=== PATIENT | female | born 1965 | race Caucasian/White ===

== ENCOUNTER → 2022-01-03 13:23 | Outpatient (CLI) | payer MEDICARE, SELFPAY ==
--- NOTE | ~2022-01-03 | XR_ITS ---
XR hip RT 2V w AP pelvis DATE: 01/03/2022 13:52 INDICATION: Right hip pain TECHNIQUE: AP pelvis. AP and lateral views of right hip COMPARISON: None FINDINGS: The pubic symphysis and sacroiliac joints are intact. Hip joint spaces are symmetric and re latively well preserved. No fracture or dislocation, avascular necrosis or bone destruction of the right hip is detected. IMPRESSION: No significant abnormality of the right hip Reviewed, dictated and finalized at location A. 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
--- NOTE | ~2022-01-03 | XR_ITS ---
XR lumbar spine 2-3V DATE: 01/03/2022 13:52 INDICATION: Low back pain, right hip pain TECHNIQUE: AP, lateral, coned lateral lumbosacral views COMPARISON: None FINDINGS: Status post cholecystectomy. There is degenerative change at the apophyseal joints in the lower lumbar and lumbosacral area with a ssociated grade 1 anterolisthesis at L4-5. There is moderate degenerative disc disease at L2-3 and mild degenerative disc disease at L3-4 and L4 -5. No fracture or bone destruction. The included lower thoracic and lumbar pedicles are intact. The sacroiliac joints are normal. There is a prominent amount of fecal material in the colon. Status post cholecystectomy. 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
== END ==
PROVIDERS: PCP Family Medicine
DX: M25.551 Pain in right hip (principal); M47.816 Spondylosis without myelopathy or radiculopathy, lumbar region; Z90.49 Acquired absence of other specified parts of digestive tract
CPT/HCPCS: 72100; 73502

== ENCOUNTER → 2022-01-31 18:03 | Outpatient (CLI) | payer MEDICARE, SELFPAY ==
--- NOTE | ~2022-01-31 | MR_ITS ---
EXAMINATION: MR lumbar spine wo con DATE: 01/31/2022 18:54 INDICATION: Lumbar radiculopathy TECHNIQUE: Magnetic resonance imaging (MRI) of the lumbar spine was performed without intravenous con trast. Sequences included sagittal T2-weighted FSE, sagittal T2-weighted FS FSE, sagittal T1-weighted FSE, and axial T2-weighted FSE. COMPARISON: Lumbar spine radiographs dated 01/03/2022 FINDINGS: 1-2 mm retrolisthesis L3 on L4, 4 mm anterolisthesis L4 on L5 and 3 mm retrolisthesis L5 on S1. Verte bral body heights are normal. Normal marrow signal. Mild to moderate disc height loss at L2-L3 and L 4-L5 and mild disc height loss at L3-L4 and L5-S1. The conus medullaris terminates at L1. There is no rmal signal in the caudal spinal cord. Paravertebral soft tissues are unremarkable. The following dis c levels are specifically discussed: T12-L1: The disc does not extend beyond the endplate margin. There is mild bilateral facet joint oste oarthritis. There is no neural foraminal stenosis. There is no central canal stenosis. L1-L2: Disc is minimally bulging. There is mild bilateral facet joint osteoarthritis. There is mild b ilateral neural foraminal stenosis. There is no central canal stenosis. L2-L3: Diffuse disc bulge with annular fissure. There is mild left and moderate right facet joint ost eoarthritis. There is mild to moderate bilateral neural foraminal stenosis. There is mild central can al stenosis. L3-L4: Diffuse disc bulge with annular fissure. There is hypertrophy of the ligamentum flavum. There is moderate bilateral facet joint osteoarthritis. There is moderate bilateral neural foraminal stenos is. There is mild central canal stenosis. L4-L5: Disc is bulging with annular fissure and broad-based disc extrusion extending from foraminal z one to foraminal zone with disc material extending up to 3 mm cephalad to the level of the inferior e ndplate of L4. There is hypertrophy of the ligamentum flavum. There is severe bilateral facet joint osteoarthritis. There is moderate to severe bilateral neural foraminal stenosis. There is severe cent ral canal stenosis. L5-S1: Disc is bulging with annular fissure and disc extrusion extending from the central to the righ t foraminal zone with disc material extending couple millimeters cephalad and caudal to the level of the endplates. There is moderate bilateral facet joint osteoarthritis. There is moderate to severe le ft and severe right neural foraminal stenosis. There is mild central canal stenosis. IMPRESSION: 1. Moderate lumbar spondylosis with severe central canal stenosis at L4-L5 and bilateral moderate to severe neural foraminal stenosis at L4-L5 and L5-S1. 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
== END ==
PROVIDERS: Visit Provider Family Medicine
DX: M47.27 Other spondylosis with radiculopathy, lumbosacral region (principal); M48.07 Spinal stenosis, lumbosacral region; M47.25 Other spondylosis with radiculopathy, thoracolumbar region; M48.05 Spinal stenosis, thoracolumbar region
CPT/HCPCS: 72148

== ENCOUNTER 2022-07-12 09:57 | Outpatient (CLI) | payer MEDICARE, SELFPAY ==
--- NOTE | ~2022-07-12 | MM_ITS ---
EXAMINATION: MM screening estephanie BI w vika HISTORY: Screening mammogram TECHNIQUE: Craniocaudal and mediolateral oblique 3-D tomosynthesis images were obtained and synthetic 2-D images were generated. CAD analysis was submitted and interpreted. COMPARISON: 12/02/2017 bilateral screening mammogram BREAST PARENCHYMAL COMPOSITION: There are scattered areas of fibroglandular density. FINDINGS: Occasional benign calcifications. There is no evidence of suspicious mass, calcification, or architectural distortion to suggest malig radha in either breast. There has been no suspicious interval change. IMPRESSION: 1. No mammographic evidence of malignancy. 2. Recommend routine screening mammography in one year. BI-RADS Category 2: Benign finding(s). 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
== END 2022-07-12 09:58 | disposition home or self-care (01) ==
PROVIDERS: Visit Provider Family Medicine
DX: Z12.31 Encounter for screening mammogram for malignant neoplasm of breast (principal)
CPT/HCPCS: 77063; 77067

== ENCOUNTER → 2022-07-12 10:28 | Outpatient (CLI) | payer MEDICARE, SELFPAY ==
--- NOTE | ~2022-07-12 | XR_ITS ---
EXAMINATION:XR_CERV2-3V_CR DATE: 07/12/2022 10:45 INDICATION: Neck pain TECHNIQUE: AP, lateral, lateral swimmers and odontoid views of the cervical spine are provided. COMPARISON: None FINDINGS: Alignment is normal. The odontoid is intact. No fracture is identified. The vertebral body heights are normal. There is moderate loss of intervertebral disc space height at C5-6. There is mild multilevel facet and uncovertebral joint osteoarthritis. Prevertebral soft tissues are normal. IMPRESSION: 1. Mild cervical spondylosis without acute findings. 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
--- NOTE | ~2022-07-12 | XR_ITS ---
EXAMINATION: XR nasal bones min 3V INDICATION: Nasal congestion TECHNIQUE: Three views of the nasal bones are obtained. COMPARISON: None available FINDINGS: No nasal fracture is identified. The soft tissues are unremarkable. There appears to be min imal opacification of the left maxillary sinus. IMPRESSION: 1. Possible minimal left maxillary sinus disease. Consider CT of the sinuses of there is high clinica l suspicion for significant sinus disease. 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 IMPRESSION: 1. Possible minimal left maxillary sinus disease. Consider CT of the sinuses of there is high clinical suspicion for significant sinus disease.
== END ==
PROVIDERS: PCP Family Medicine; Visit Provider Family Medicine
DX: J34.89 Other specified disorders of nose and nasal sinuses (principal); M47.892 Other spondylosis, cervical region
CPT/HCPCS: 70160; 72040

== ENCOUNTER 2023-10-18 09:37 | Outpatient (CLI) | payer MEDICARE, SELFPAY ==
--- NOTE | ~2023-10-18 | MM_ITS ---
EXAMINATION: MM screening estephanie BI w vika HISTORY: Screening mammogram TECHNIQUE: Craniocaudal and mediolateral oblique 3-D tomosynthesis images were obtained and synthetic 2-D images were generated. CAD analysis was submitted and interpreted. COMPARISON: 07/12/2022, 12/02/2017 bilateral screening mammogram examinations BREAST PARENCHYMAL COMPOSITION: There are scattered areas of fibroglandular density. FINDINGS: There is no evidence of suspicious mass, calcification, or architectural distortion to sugg est malignancy in either breast. There has been no suspicious interval change. IMPRESSION: 1. No mammographic evidence of malignancy. 2. Recommend routine screening mammography in one year. 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
== END 2023-10-18 09:38 | disposition home or self-care (01) ==
LOC: ANHIMG 09:39
PROVIDERS: PCP Family Medicine; Visit Provider Family Medicine
DX: Z12.31 Encounter for screening mammogram for malignant neoplasm of breast (principal)
CPT/HCPCS: 77063; 77067